=== PATIENT | female | born 1965 | race Caucasian/White ===

== ENCOUNTER 2021-03-12 07:59 | Outpatient (CLI) | payer BC | END 2021-03-12 08:00 | disposition home or self-care (01) | LOC: CSHCT 07:59 | PROVIDERS: ATTEND Internal Medicine Hematology & Oncology | DX: C18.7 Malignant neoplasm of sigmoid colon (principal) | CPT/HCPCS: 71260; 74177 ==

== ENCOUNTER 2021-09-22 08:21 | Outpatient (CLI) | payer BC | END 2021-09-22 08:22 | disposition home or self-care (01) | LOC: CSHCT 08:21 | PROVIDERS: ATTEND Internal Medicine Hematology & Oncology | DX: C18.7 Malignant neoplasm of sigmoid colon (principal) | CPT/HCPCS: 71260; 74177 ==

== ENCOUNTER 2022-04-05 13:16 | Outpatient (CLI) | payer BC | END 2022-04-05 13:17 | disposition home or self-care (01) | LOC: CSHMAMMO 13:16 | PROVIDERS: ATTEND Obstetrics & Gynecology | DX: N63.10 Unspecified lump in the right breast, unspecified quadrant (principal) | CPT/HCPCS: G0279 ==

== ENCOUNTER 2022-09-22 13:30 | Outpatient (CLI) | payer BC | END 2022-09-22 13:31 | disposition home or self-care (01) | LOC: CSHCT 13:30 | PROVIDERS: ATTEND Physician Assistant | DX: R93.89 Abnormal findings on diagnostic imaging of other specified body structures (principal); R91.8 Other nonspecific abnormal finding of lung field; K76.9 Liver disease, unspecified | CPT/HCPCS: 71260 ==

== ENCOUNTER 2023-03-24 09:14 | Outpatient (CLI) | payer BC ==
[2023-03-24] MEDS ORDERED: Iopamidol 300 61% 100 ML VIAL FS ONE (10:41)
== END 2023-03-24 09:15 | disposition home or self-care (01) ==
LOC: CSHCT 09:14
PROVIDERS: ATTEND Internal Medicine Hematology & Oncology
DX: C18.9 Malignant neoplasm of colon, unspecified (principal); K76.9 Liver disease, unspecified; K76.0 Fatty (change of) liver, not elsewhere classified; R16.1 Splenomegaly, not elsewhere classified
CPT/HCPCS: 71260; 74177; Q9967

== ENCOUNTER 2023-03-27 13:53 | Outpatient (CLI) | payer BC | END 2023-03-27 13:54 | disposition home or self-care (01) | LOC: CSHMAMMO 13:53 | PROVIDERS: ATTEND Obstetrics & Gynecology | DX: Z12.31 Encounter for screening mammogram for malignant neoplasm of breast (principal); Z85.038 Personal history of other malignant neoplasm of large intestine | CPT/HCPCS: 77063; 77067 ==

== ENCOUNTER 2024-11-11 13:36 | Outpatient (CLI) | payer BC | END 2024-11-11 13:37 | disposition home or self-care (01) | LOC: CSHRAD 13:36 | PROVIDERS: ATTEND Physician Assistant | DX: M25.572 Pain in left ankle and joints of left foot (principal); M19.072 Primary osteoarthritis, left ankle and foot ==